=== PATIENT | female | born 1955 | race Caucasian/White ===

== ENCOUNTER → 2021-10-07 | Day surgery (SDC) | payer OTHER ==
[~2021-10-07] VITALS: Ht 165.1 cm; Wt 81.3 kg
[~2021-10-07] MED LIST: ALPRAZOLAM 0.50.5 MG PO; AMLODIPINE BESYL5 MG PO; CELECOXIB200 MG PO; COLESTIPOL HCL1 GM PO; LEVOCETIRIZINE D5 MG PO; PANTOPRAZOLE SO40 MG PO; PAROXETINE 20MG20 MG PO; PRAVASTATIN SOD40 MG PO; VENTOLIN HFA18 GM INH; VITAMIN D325 MC1 PO
[2021-10-07 07:33] LABS: HCT 44.1 % (37.0-47.0); HGB 14.7 g/dl (12.5-16.0); MCH 29.9 pg (25.0-31.0); MCHC 33.3 g/dL (32.0-36.0); MCV 89.6 fL (78.0-100.0); MPV 9.3 fL (6.0-9.5); RBC 4.92 M/uL (4.20-5.40); RDW 12.1 % (11.5-14.0); WBC 6.5 K/uL (4.0-10.5)
[2021-10-07 08:15] LABS: ALBUMIN 4.1 g/dL (3.4-5.0); BILIRUBIN - TOTAL 0.5 mg/dL (0.2-1.0); BUN/CREAT RATIO (CALC) 15.9 RATIO; CREATININE 0.69 mg/dL (0.51-0.95); GLOBULIN (CALCULATION) 3.3 g/dL; POTASSIUM 3.6 mmol/L (3.5-5.1); TOTAL PROTEIN 7.4 g/dL (6.4-8.2)
== END | disposition home or self-care (01) ==
LOC: FAS 06:58
PROVIDERS: Surgery
DX: Z12.11 Encounter for screening for malignant neoplasm of colon (principal); K57.30 Diverticulosis of large intestine without perforation or abscess without bleeding; Z87.19 Personal history of other diseases of the digestive system; K58.9 Irritable bowel syndrome, unspecified
CPT/HCPCS: 36415; 80053; J1610; J2250; J2704; J7120